=== PATIENT | female | born 1965 | race Caucasian/White ===

== ENCOUNTER 2016-10-14 04:50 | Emergency (ER) | payer OTHER, SELFPAY ==
[2016-10-14] MEDS ORDERED: KETOROLAC TROMETHAMINE INJ 30 MG/ML VIAL IV ONE (05:22)
[2016-10-14] MEDS ORDERED: methylPREDNISolone SODIUM SUC 125 MG/2 ML VIAL IV ONE (05:22)
[2016-10-14] MEDS ORDERED: diphenhydrAMINE HCL 50 MG/ML VIAL IV ONE (05:22)
[2016-10-14] MEDS ORDERED: METOCLOPRAMIDE HCL INJ 10 MG/2 ML VIAL IV ONE (05:22)
[2016-10-14] MEDS ORDERED: SODIUM CHLORIDE 0.9% 1000ML 1,000 ML IVS ONE (05:22)
--- NOTE | 2016-10-14 05:28 | ED.PDOC ---
History of Present Illness - General Chief Complaint: GI Problem Stated Complaint: headache, vomiting Time Seen by Provider: 10/14/16 05:17 Source: patient, family Exam Limitations: no limitations - History of Present Illness Initial Comments: FRONTAL HEADACHE ONSET YESTERDAY AT [facility]ON ASSOCIATED WITH PHOTOPHOBIA AND VOMITING. DENIES ANY FEVER OR DIARRHEA. SHE RATES THE [place] AT 10/10. EVERY TIME SHE ATTEMPTS TO TAKE HER MAXALT SHE VOMITS IT. Timing/Duration: other - 17 HRS AGO Quality: severe, throbbing Head Injury Location: frontal Recent Head Trauma: no recent headache/trauma, chronic headaches Improving Factors: nothing Worsening Factors: nothing Associated Symptoms: nausea/vomiting Allergies/Adverse Reactions: Allergies NO KNOWN ALLERGY Allergy (Verified 10/14/16 05:16) Home Medications: Ambulatory Orders Ambien 10/14/16 Maxalt 10/14/16 Promethazine Supp [Phenergan Suppository] 25 mg AL Q6HRS #6 sup 10/14/16 Tramadol HCl 10/14/16 Review of Systems - Review of Systems Constitutional: States: malaise. Denies: chills, fever EENTM: States: no symptoms reported, eye pain, blurred vision Respiratory: States: no symptoms reported Cardiology: States: no symptoms reported Gastrointestinal/Abdominal: States: nausea, vomiting. Denies: abdominal pain, diarrhea Genitourinary: States: no symptoms reported Musculoskeletal: States: no symptoms reported Skin: States: no symptoms reported Neurological: States: no symptoms reported Endocrine: States: no symptoms reported Hematologic/Lymphatic: States: no symptoms reported All other Systems: Reviewed and Negative Past Medical History (General) - Patient Medical History Hx Seizures: No Hx Stroke: No Hx Dementia: No Hx Asthma: No Hx of COPD: No Hx Cardiac Disorders: No Hx Congestive Heart Failure: No Hx Pacemaker: No Hx Hypertension: No Hx Thyroid Disease: No Hx Diabetes: No Hx Gastroesophageal Reflux: No Hx Renal Disease: No Hx Cancer: No Hx of HIV: No Hx Hepatitis C: No Hx MRSA: No Surgical History: appendectomy, Hysterectomy - Vaccination History Hx Tetanus, Diphtheria Vaccination: No Hx Influenza Vaccination: No Hx Pneumococcal Vaccination: No - Social History Hx Tobacco Use: No Hx Alcohol Use: No Hx Substance Use: No Hx Substance Use Treatment: No Hx Depression: No Hx Physical Abuse: No Hx Emotional Abuse: No Hx Suspected Abuse: No - Female History Patient is a Female of Child Bearing Age (10 -59 yrs old): No Patient : No Family Medical History - Family History Mother Family History: Unknown Physical Exam - Physical Exam General Appearance: Alert, Anxious Eyes, Ears, Nose, Throat Exam: PERRL/EOMI, normal ENT inspection Neck: non-tender, full range of motion, supple Cardiovascular/Chest: normal peripheral pulses, regular rate, rhythm, no edema, no gallop, no JVD, no murmur Respiratory: chest non-tender, lungs clear, normal breath sounds, no respiratory distress, no accessory muscle use Gastrointestinal/Abdominal: non tender, soft, no organomegaly, no pulsatile mass Back Exam: normal inspection Extremity: normal range of motion Mental Status: alert, oriented x 3 manager auto Exam: normal hearing, normal speech, PERRL Motor/Sensory: no motor deficit, no sensory deficit Skin Exam: warm/dry, normal color Lymphatic: no adenopathy Progress - Results/Orders Results/Orders: REASSESSED PATIENT: FEELS BETTER PAIN 7-8/10. STILL HAS SOME NAUSEA. LAB IS BACK AND THE CREATININE IS 0.53 AND BUN AT 22. FLUIDS HAVE BEEN GIVEN. WILL ADD SOME ANALGESIA TO THE REGIMEN. Departure - Departure Clinical Impression: Migraine aura without headache Vomiting Qualifiers: Vomiting type: bilious vomiting Nausea presence: with nausea Qualifier Code: ( R11.14) Bilious vomiting Time of Disposition: 06:40 Disposition: Discharge to Home or Self Care Condition: Fair Departure Forms: ED Discharge - Pt. Copy, Patient Portal Self Enrollment Diet: full liquid diet Activity: increase activity as tolerated Prescriptions: Promethazine Supp [Phenergan Suppository] 25 mg AL Q6HRS #6 sup Home Medications: Ambulatory Orders Ambien 10/14/16 Maxalt 10/14/16 Promethazine Supp [Phenergan Suppository] 25 mg AL Q6HRS #6 sup 10/14/16 Tramadol HCl 10/14/16
[2016-10-14] MEDS ORDERED: PROMETHAZINE HCL INJ 12.5 MG in SODIUM CHLORIDE 0.9% 50ML 50 ML IVPB ONE (06:37)
[2016-10-14] MEDS ORDERED: HYDROmorphone HCL INJ 2 MG/ML VIAL IV ONE (06:37)
[2016-10-14] MEDS ORDERED: PROMETHAZINE HCL INJ 25 MG/ML VIAL ONE (06:47)
[2016-10-14] MEDS ORDERED: SODIUM CHLORIDE 0.9% 50ML 50 ML ONE (06:48)
[2016-10-14 08:09] VITALS: BP 94/59; TEMP 98.3; O2SAT 97
== END 2016-10-14 07:55 | disposition home or self-care (01) ==
LOC: ER 04:50
DX: G43.109 Migraine with aura, not intractable, without status migrainosus (principal); R11.14 Bilious vomiting; Z79.899 Other long term (current) drug therapy
CPT/HCPCS: 36415; 80053; 85025; A4216; J1170; J1200; J1885; J2550; J2765; J2930; J7030